=== PATIENT | female | born 1960 | race Caucasian/White ===

== ENCOUNTER 2017-07-15 14:28 | Inpatient (IN) | payer OTHER ==
--- NOTE | 2017-07-15 15:03 | EDPHY ---
H & P Stated Complaint: abdominal pain with extreme nausea. HX- small bowel obst Time Seen by Provider: 07/15/17 15:00 - Personal History Current Tetanus Diphtheria and Acellular Pertussis (TDAP): Yes - Medical/Surgical History Hx Asthma: No Hx Chronic Respiratory Disease: No Hx Diabetes: No Hx Cardiac Disease: No Hx Renal Disease: No Hx Cirrhosis: No Hx Alcoholism: No Hx HIV/AIDS: No Hx Splenectomy or Spleen Trauma: No Other PMH: ovarian CA, bowel obstruction, appy, kyphoplasty, hand surgery, tonsilectomy - Social History Smoking Status: Never smoked Constitutional: Initial Vital Signs Temperature (C) 36.6 C 07/15/17 14:36 Heart Rate 73 07/15/17 14:36 Respiratory Rate 19 07/15/17 14:36 Blood Pressure 129/115 H 07/15/17 14:36 O2 Sat (%) 99 07/15/17 14:36 O2 Delivery Mode Room Air Allergies/Adverse Reactions: codeine Allergy (Verified 03/04/15 09:21) Home Medications: Medication Instructions Recorded Ciprofloxacin [Cipro] 500 mg PO BID #20 tab 07/15/17 Gabapentin 07/15/17 Losartan Potassium 07/15/17 Ondansetron Odt [Zofran Odt 4 mg 4 mg PO Q4 PRN #10 tab 07/15/17 (RX)] metroNIDAZOLE [Flagyl 500 mg (*)] 500 mg PO TID #30 tab 07/15/17 Medical Decision Making - Diagnostics Imaging Results: Imaging Impressions Abdomen CT 07/15/17 15:35 Impression: 1. Mildly dilated loops of mid to distal small bowel to the level of the mid ileum which demonstrates mild to moderate thickening and possible underlying inflammatory or infectious process. 2. Mild distention of the ascending colon without obstruction. 3. Stable presacral soft tissue thickening. Findings discussed with Elda Berry PA-C answering for Manuel Mcqueen MD at 16:48 hour, 07/15/2017. Imaging: Discussed imaging studies w/ call manager Radiologist, I viewed and interpreted images myself ED Course/Re-evaluation: CHIEF COMPLAINT: Abdominal pain HISTORY OF PRESENT ILLNESS: The patient is a 56 y/o female with a history of ovarian cancer post radiation, debulking, and partial colectomy and prior small bowel obstructions complaining of intermittent LLQ abdominal pain onset this morning. She describes her pain as cramping in quality, non-radiating, and associated with nausea and vomiting. She has felt constipated for the last few days and has had no bowel movement today. Her pain feels similar to her prior obstructions, which have both required hospital admissions but no surgeries. She denies diarrhea, hematemesis, fever, chills. REVIEW OF SYSTEMS: A 10 point review of systems was performed and is negative with the exception of the elements mentioned in the history of present illness. PHYSICAL EXAM: HR, BP, O2 Sat, RR. Temp noted General Appearance: Alert, well hydrated, appropriate, and uncomfortable- appearing, actively vomiting/belching. Head: Atraumatic without scalp tenderness or obvious injury Eyes: Pupils equal, round, reactive to light and accommodation, EOMI, no trauma , no injection. Nose: Atraumatic, no rhinorrhea, clear. Throat: Mucus membranes moist. Neck: Supple Respiratory: No retractions, no distress, no wheezes, and no accessory muscle use. Lungs are clear to auscultation bilaterally. Cardiovascular: Regular rate and rhythm, no murmurs, rubs, or gallops. Good capillary refill all extremities. Gastrointestinal: Abdomen is soft, LLQ tenderness and guarding, non-distended, no masses, no rebound, no peritoneal signs. Musculoskeletal: Normal active ROM of all extremities, atraumatic. Neurological: Alert, appropriate, and interactive. The patient has non-focal cranial nerves, motor, sensory, and cerebellar exam. Skin: No rashes, good turgor, no nodules on palpation. Past medical history: Ovarian cancer post entire abdomen radiation and surgery, Small bowel obstructions x2 not requiring surgery Past surgical history: Appendectomy - [place], debulking and colectomy related to ovarian cancer, tonsillectomy, kyphoplasty, hand surgery Family history: Noncontributory Social history: Nonsmoker, occasional alcohol use DIAGNOSTICS/PROCEDURES/CRITICAL CARE TIME: Abdominal CT: No definitive obstruction. Thickened loops of bowel in the ileum could represent inflammation or infection. Mildly distended colon. DIFFERENTIAL DIAGNOSIS: The differential diagnosis for the patient's abdominal pain included but was not limited to ovarian cyst, pelvic inflammatory disease, ovarian torsion, urinary tract infection, ectopic , cholecystitis, and appendicitis. MEDICAL DECISION MAKING: This is a 56 y/o female with a history of ovarian cancer post multiple surgeries and whole-abdomen radiation as well as prior small bowel obstructions who presents with several hours of intermittent cramping LLQ abdominal pain with nausea and vomiting. She has LLQ tenderness with guarding on exam. Symptoms feel similar to her prior SBO and her presentation today particularly given significant risk factors is concerning for the same. Plan for IV, labs, abdominal CT, and symptom management. 1L IV NS and 4mg IV Zofran ordered. Reassessed patient and discussed findings. WBC mildly elevated. She is feeling significantly improved. CT does not show a definitive obstruction, though it's impossible to determine if process causing her symptoms are resolving or will worsen again. Will treat with course of Cipro and Flagyl for suspected colitis. Discussed the risks and benefits of admission for continued observation and symptom management vs. discharge home and she has opted to go home with a script for Zofran for symptoms. Strict return precautions discussed. 1810: Patient is now vomiting again and has decided she would like to be admitted. Will administered first doses of Cipro and Flagyl here. Spoke with hospitalist service. Dr. Corrigan accepts admission. - Data Points Laboratory Results: Laboratory Results 07/15/17 15:07 07/15/17 15:07 07/15/17 07/15/17 07/15/17 16:30 15:45 15:07 WBC RBC Hgb POC Hgb 12.6 gm/dL gm/dL (12.6-16.3) Hct POC Hct 37 % L % (38-47) MCV MCH MCHC RDW Plt Count MPV Neut % (Auto) Lymph % (Auto) [place] % (Auto) Eos % (Auto) Baso % (Auto) Nucleat RBC Rel Count Absolute Neuts (auto) Absolute Lymphs (auto) Absolute Monos (auto) Absolute Eos (auto) Absolute Basos (auto) Absolute Nucleated RBC Immature Gran % Immature Gran # PT INR APTT VBG Lactic Acid 0.9 mmol/L mmol/L (0.7-2.1) POC Sodium 142 mEq/L mEq/L (135-145) Sodium 144 mEq/L mEq/L (135-145) POC Potassium 3.5 mEq/L mEq/L (3.3-5.0) Potassium 3.8 mEq/L mEq/L (3.5-5.2) POC Chloride 104 mEq/L mEq/L (97-110) Chloride 104 mEq/L mEq/L (97-110) Carbon Dioxide 27 mEq/l mEq/l (22-31) Anion Gap 13 mEq/L mEq/L (8-16) POC BUN 12 mg/dL mg/dL (7-23) BUN 13 mg/dL mg/dL (7-23) Creatinine 0.7 mg/dL mg/dL (0.6-1.0) POC Creatinine 0.7 mg/dL mg/dL (0.6-1.0) Estimated GFR > 60 Glucose 149 mg/dL H mg/dL (70-100) POC Glucose 141 mg/dL H mg/dL (70-100) Calcium 10.0 mg/dL mg/dL (8.5-10.4) Total Bilirubin 1.8 mg/dL H mg/dL (0.1-1.4) Conjugated Bilirubin 0.4 mg/dL mg/dL (0.0-0.5) Unconjugated Bilirubin 1.4 mg/dL H mg/dL (0.0-1.1) AST 35 IU/L IU/L (14-46) ALT 41 IU/L IU/L (9-52) Alkaline Phosphatase 87 IU/L IU/L (38-126) Total Protein 7.8 g/dL g/dL (6.3-8.2) Albumin 4.6 g/dL g/dL (3.5-5.0) Lipase 07/15/17 07/15/17 07/15/17 15:07 15:07 15:07 WBC 10.13 10^3/uL H 10^3/uL (3.80-9.50) RBC 4.76 10^6/uL 10^6/uL (4.18-5.33) Hgb 13.3 g/dL g/dL (12.6-16.3) POC Hgb Hct 40.2 % % (38.0-47.0) POC Hct MCV 84.5 fL fL (81.5-99.8) MCH 27.9 pg pg (27.9-34.1) MCHC 33.1 g/dL g/dL (32.4-36.7) RDW 13.8 % % (11.5-15.2) Plt Count 354 10^3/uL 10^3/uL (150-400) MPV 9.0 fL fL (8.7-11.7) Neut % (Auto) 85.3 % H % (39.3-74.2) Lymph % (Auto) 9.5 % L % (15.0-45.0) [place] % (Auto) 4.0 % L % (4.5-13.0) Eos % (Auto) 0.5 % L % (0.6-7.6) Baso % (Auto) 0.3 % % (0.3-1.7) Nucleat RBC Rel Count 0.0 % % (0.0-0.2) Absolute Neuts (auto) 8.64 10^3/uL H 10^3/uL (1.70-6.50) Absolute Lymphs (auto) 0.96 10^3/uL L 10^3/uL (1.00-3.00) Absolute Monos (auto) 0.41 10^3/uL 10^3/uL (0.30-0.80) Absolute Eos (auto) 0.05 10^3/uL 10^3/uL (0.03-0.40) Absolute Basos (auto) 0.03 10^3/uL 10^3/uL (0.02-0.10) Absolute Nucleated RBC 0.00 10^3/uL 10^3/uL (0-0.01) Immature Gran % 0.4 % % (0.0-1.1) Immature Gran # 0.04 10^3/uL 10^3/uL (0.00-0.10) PT 13.0 SEC SEC (12.0-15.0) INR 0.96 (0.83-1.16) APTT 26.1 SEC SEC (23.0-38.0) VBG Lactic Acid POC Sodium Sodium 144 mEq/L mEq/L (135-145) POC Potassium Potassium 3.8 mEq/L mEq/L (3.5-5.2) POC Chloride Chloride 103 mEq/L mEq/L (97-110) Carbon Dioxide 26 mEq/l mEq/l (22-31) Anion Gap 15 mEq/L mEq/L (8-16) POC BUN BUN 13 mg/dL mg/dL (7-23) Creatinine 0.7 mg/dL mg/dL (0.6-1.0) POC Creatinine Estimated GFR > 60 Glucose 149 mg/dL H mg/dL (70-100) POC Glucose Calcium 10.0 mg/dL mg/dL (8.5-10.4) Total Bilirubin 1.8 mg/dL H mg/dL (0.1-1.4) Conjugated Bilirubin Unconjugated Bilirubin AST 32 IU/L IU/L (14-46) ALT 37 IU/L IU/L (9-52) Alkaline Phosphatase 89 IU/L IU/L (38-126) Total Protein 7.8 g/dL g/dL (6.3-8.2) Albumin 4.6 g/dL g/dL (3.5-5.0) Lipase 79 IU/L IU/L (23-300) Medications Given: Discontinued Medications Sodium Chloride (Ns) 1,000 mls @ 0 mls/hr IV EDNOW ONE; Wide Open PRN Reason: Protocol Stop: 07/15/17 15:36 Last Admin: 07/15/17 16:04 Dose: 1,000 mls Ondansetron HCl (Zofran) 4 mg IVP EDNOW ONE Stop: 07/15/17 15:14 Last Admin: 07/15/17 15:18 Dose: 4 mg Point of Care Test Results: 07/15/17 15:45 POC Sodium 142 POC Potassium 3.5 POC Chloride 104 POC BUN 12 POC Creatinine 0.7 POC Glucose 141 H Departure - Departure Disposition: [facility] Inpatient Acute Clinical Impression: Colitis Abdominal pain Qualifiers: Abdominal location: left lower quadrant Qualified Code(s): R10.32 - Left lower quadrant pain Condition: Fair Report Scribed for: Manuel Mcqueen Report Scribed by: Marika De Luna Date of Report: 07/15/17 Time of Report: 15:30
[2017-07-15] MEDS ORDERED: ONDANSETRON 4 MG/2 ML VIAL IVP ONE ×2 (15:13→18:22)
[2017-07-15 15:35] LABS: PLATELET COUNT 354 10^3/uL (150-400)
[2017-07-15] MEDS ORDERED: NS 1,000 ML IV ONE ×2 (15:35→18:42)
[2017-07-15] MEDS ORDERED: IOPAMIDOL (ISOVUE-300) 100 ML BTL ONE (15:48)
[2017-07-15 15:49] LABS: INR 0.96 (0.83-1.16)
[2017-07-15] MEDS ORDERED: ONDANSETRON 4 MG/2 ML VIAL ONE ×2 (16:30→18:23)
[2017-07-15] MEDS ORDERED: ONDANSETRON 4MG PREPACK#2 BTL TAKEHOME ONE (18:00)
[2017-07-15] MEDS ORDERED: CIPROFLOXACIN 500MG PREPACK#2 BTL TAKEHOME ONE (18:00)
[2017-07-15] MEDS ORDERED: metroNIDAZOLE 500 MG TAB ONE (18:01)
[2017-07-15] MEDS ORDERED: CIPROFLOXACIN 400 MG/DEXTROSE 200 ML IV ONE (18:20)
[2017-07-15] MEDS ORDERED: HYDROmorphONE/DILAUDID 1 MG/ML INJ IVP ONE (18:21)
[2017-07-15] MEDS ORDERED: PROMETHAZINE HCL 25 MG/ML INJ IVP ONE (18:22)
[2017-07-15] MEDS ORDERED: PROMETHAZINE HCL 25 MG/ML INJ ONE (18:24)
[2017-07-15] MEDS ORDERED: HYDROmorphONE/DILAUDID 2 MG/ML INJ ONE (18:36)
--- NOTE | 2017-07-15 19:36 | PDGENHP ---
History and Physical - Chief Complaint abdominal cramping, vomiting - History of Present Illness 56 yo female with h/o ovarian cancer and recurrent partial SBO's presents with abdominal pain, cramping and vomiting. She has had multiple abdominal surgeries and radiation for ovarian cancer in 2004. This morning she awoke with nausea and crampy abdominal discomfort. She had armenian food and a lot of vegetables last night. She has vomited 5 times today, no hematemesis or coffee ground emesis. No fevers/chils. States she has chronic diarrhea. Last BM was this am and it was normal for her. In the ED, CT scan shows dilated loops of bowel and small bowel wall thickening. This feels similar to her prior obstructions, which have always resolved with conservative management. In the ED, she received 1 mg IV Dilaudid , anti-emetics, and NS and is admitted to the hospital for further management. History Information - Allergies/Home Medication List Allergies/Adverse Reactions: codeine Allergy (Verified 03/04/15 09:21) Home Medications: Alendronate Sodium [Fosamax 70 MG (*)] 70 mg PO FR 07/15/17 [Last Taken 07/14/17 ] HYDROmorphone HCL [Dilaudid 2 mg (*)] 2 mg PO DAILY PRN 07/15/17 [Last Taken Unknown] Losartan/Hctz 50/12.5 [Hyzaar 50/12.5MG (*)] 1 tab PO DAILY 07/15/17 [Last Taken 07/14/17] I have personally reviewed and updated: family history, medical history, social history, surgical history - Past Medical History hypertension Additional medical history: ovarian cancer diagnosed 2004, surgical resection and chemo and radiation- in remission. osteoarthritis. peripheral neuropathy - Surgical History Reports: appendectomy, cholecystectomy, hysterectomy Additional surgical history: exploratory laparoscopic surgery. oopherectomy/ salpingectomy. FRANKI. bowel resection, tumor debulking surgery. tonsillectomy - Family History Positive for: cancer, diabetes type II - Social History Smoking Status: Never smoked Alcohol Use: Other (1-2 glasses of wine every few days) Drug Use: None Additional social history: Lives with her sister. She works as an senior design engineer for [employer] Review of Systems Review of Systems: ROS: 10pt was reviewed & negative except for what was stated in HPI & below Physical Exam Physical Exam: Temp Pulse Resp BP Pulse Ox 36.5 C 76 18 119/77 96 07/15/17 18:33 07/15/17 19:04 07/15/17 19:04 07/15/17 19:04 07/15/17 19:04 O2 (L/minute) 2 Constitutional: no apparent distress Eyes: PERRL Ears, Nose, Mouth, Throat: moist mucous membranes Cardiovascular: regular rate and rhythym Respiratory: no respiratory distress, clear to auscultation Gastrointestinal: normoactive bowel sounds, other (soft, nd, +left sided TTP with voluntary guarding, no rigidity) Skin: warm Musculoskeletal: full muscle strength Neurologic: AAOx3 Psychiatric: interacting appropriately Lab Data & Imaging Review 07/15/17 15:07 07/15/17 15:07 WBC 10.13 10^3/uL (3.80-9.50) H 07/15/17 15:07 RBC 4.76 10^6/uL (4.18-5.33) 07/15/17 15:07 Hgb 13.3 g/dL (12.6-16.3) 07/15/17 15:07 POC Hgb 12.6 gm/dL (12.6-16.3) 07/15/17 15:45 Hct 40.2 % (38.0-47.0) 07/15/17 15:07 POC Hct 37 % (38-47) L 07/15/17 15:45 MCV 84.5 fL (81.5-99.8) 07/15/17 15:07 MCH 27.9 pg (27.9-34.1) 07/15/17 15:07 MCHC 33.1 g/dL (32.4-36.7) 07/15/17 15:07 RDW 13.8 % (11.5-15.2) 07/15/17 15:07 Plt Count 354 10^3/uL (150-400) 07/15/17 15:07 MPV 9.0 fL (8.7-11.7) 07/15/17 15:07 Neut % (Auto) 85.3 % (39.3-74.2) H 07/15/17 15:07 Lymph % (Auto) 9.5 % (15.0-45.0) L 07/15/17 15:07 [place] % (Auto) 4.0 % (4.5-13.0) L 07/15/17 15:07 Eos % (Auto) 0.5 % (0.6-7.6) L 07/15/17 15:07 Baso % (Auto) 0.3 % (0.3-1.7) 07/15/17 15:07 Nucleat RBC Rel Count 0.0 % (0.0-0.2) 07/15/17 15:07 Absolute Neuts (auto) 8.64 10^3/uL (1.70-6.50) H 07/15/17 15:07 Absolute Lymphs (auto) 0.96 10^3/uL (1.00-3.00) L 07/15/17 15:07 Absolute Monos (auto) 0.41 10^3/uL (0.30-0.80) 07/15/17 15:07 Absolute Eos (auto) 0.05 10^3/uL (0.03-0.40) 07/15/17 15:07 Absolute Basos (auto) 0.03 10^3/uL (0.02-0.10) 07/15/17 15:07 Absolute Nucleated RBC 0.00 10^3/uL (0-0.01) 07/15/17 15:07 Immature Gran % 0.4 % (0.0-1.1) 07/15/17 15:07 Immature Gran # 0.04 10^3/uL (0.00-0.10) 07/15/17 15:07 PT 13.0 SEC (12.0-15.0) 07/15/17 15:07 INR 0.96 (0.83-1.16) 07/15/17 15:07 APTT 26.1 SEC (23.0-38.0) 07/15/17 15:07 VBG Lactic Acid 0.9 mmol/L (0.7-2.1) 07/15/17 16:30 POC Sodium 142 mEq/L (135-145) 07/15/17 15:45 Sodium 144 mEq/L (135-145) 07/15/17 15:07 POC Potassium 3.5 mEq/L (3.3-5.0) 07/15/17 15:45 Potassium 3.8 mEq/L (3.5-5.2) 07/15/17 15:07 POC Chloride 104 mEq/L (97-110) 07/15/17 15:45 Chloride 104 mEq/L (97-110) 07/15/17 15:07 Carbon Dioxide 27 mEq/l (22-31) 07/15/17 15:07 Anion Gap 13 mEq/L (8-16) 07/15/17 15:07 POC BUN 12 mg/dL (7-23) 07/15/17 15:45 BUN 13 mg/dL (7-23) 07/15/17 15:07 Creatinine 0.7 mg/dL (0.6-1.0) 07/15/17 15:07 POC Creatinine 0.7 mg/dL (0.6-1.0) 07/15/17 15:45 Estimated GFR > 60 07/15/17 15:07 Glucose 149 mg/dL (70-100) H 07/15/17 15:07 POC Glucose 141 mg/dL (70-100) H 07/15/17 15:45 Calcium 10.0 mg/dL (8.5-10.4) 07/15/17 15:07 Total Bilirubin 1.8 mg/dL (0.1-1.4) H 07/15/17 15:07 Conjugated Bilirubin 0.4 mg/dL (0.0-0.5) 07/15/17 15:07 Unconjugated Bilirubin 1.4 mg/dL (0.0-1.1) H 07/15/17 15:07 AST 35 IU/L (14-46) 07/15/17 15:07 ALT 41 IU/L (9-52) 07/15/17 15:07 Alkaline Phosphatase 87 IU/L (38-126) 07/15/17 15:07 Total Protein 7.8 g/dL (6.3-8.2) 07/15/17 15:07 Albumin 4.6 g/dL (3.5-5.0) 07/15/17 15:07 Lipase 79 IU/L (23-300) 07/15/17 15:07 Assessment & Plan Assessment: Abdominal pain - Suspect partial SBO given h/o multiple abdominal surgeries, recurrent SBO's and dilated loops of bowel on CT, which is personally reviewed and interpreted. No transition point. Inflammation is noted and infectious etiology is possible. WBC's minimally elevated. Afebrile. Low suspicion for a bacterial process and will thus defer further atbx (received Cipro and Flagyl in ED). -supportive care to include NPO for bowel rest, IVF's, pain control -anticipate she will improve with conservative measures, will consult surgery if worsening -will place NG tube if vomiting persists -send GI pathogen panel H/O ovarian cancer - in remission for 10 yrs. Chronic LLE edema - related to lymph node dissection of LLE. Full code DVT PPLX - Lovenox Dispo - obs
[2017-07-15] MEDS ORDERED: ACETAMINOPHEN 650 MG SUPP PR PRN (19:48)
[2017-07-15] MEDS ORDERED: ONDANSETRON DISINTEGRATING 4 MG TAB PO PRN (19:48)
[2017-07-15] MEDS ORDERED: NS W/ 20 KCl/L 1,000 ML IV SCH (20:00)
[2017-07-15] MEDS ORDERED: PROMETHAZINE HCL 25 MG/ML INJ IVP PRN (20:02)
[2017-07-15] MEDS: ONDANSETRON 4 MG/2 ML VIAL IVP PRN (21:04)
[2017-07-15] MEDS: HYDROmorphone HCL/NS 0.5 MG/ML SYR IVP PRN (22:51)
[2017-07-16 04:56] LABS: PLATELET COUNT 258 10^3/uL (150-400)
[2017-07-16] MEDS: ONDANSETRON 4 MG/2 ML VIAL IVP PRN ×3 (09:12→20:29)
[2017-07-16] MEDS: ENOXAPARIN 40 MG/0.4 ML SYR SC SCH (09:12)
--- NOTE | 2017-07-16 09:48 | ASMTCMCOM ---
CM Note CM Note Notes: Chart reviewed for dc planning. 56 year olf female admitted via ED as OBS for nausea and vomiting. History significant for SBO and ovarian cancer. Lives Independently, likely no needs at dc. CM available should needs arise. Plan: Likely home independently Date Signed: 07/16/2017 09:48 AM Electronically Signed By:Amita Westfall RN
--- NOTE | 2017-07-16 15:27 | HOSPPROG ---
Hospitalist Progress Note Assessment/Plan: 56 yo F with PMH of ovarian cancer and recurrent SBO admitted with persistent n/ v/abdominal pain similar to prior bouts of SBO # Abdominal pain - Suspect partial SBO given h/o multiple abdominal surgeries, recurrent SBO's and dilated loops of bowel on CT, which is personally reviewed and interpreted. Less likely this is an infectious process and holding off on abx for now. # partial SBO with persistent n/v: in setting of presumed partial SBO as above, NG in place and has put out 500mL overnight. She still has some nausea present. If nausea improved tomorrow will try clamping tube. Will repeat abd xray in am # H/O ovarian cancer - in remission for 10 yrs. # Chronic LLE edema - related to lymph node dissection of LLE. Stable #Full code #DVT PPLX - Lovenox IP status, remains high risk with NGT in place and requiring IV narcotics, will require > 48 hours care Patient new to my care. Old records reviewed and summarized as above. Subjective: no significant overnight events, n/v continued and required placement of NGT Objective: Vital Signs Temp Pulse Resp BP Pulse Ox 36.8 C 72 16 122/79 H 92 07/16/17 11:17 07/16/17 11:17 07/16/17 11:17 07/16/17 11:17 07/16/17 11:17 Microbiology 07/16/17 11:10 Gastrointestinal Tract Panel (PCR) - Final Stool No Organism Detected Laboratory Results 07/16/17 04:30 07/16/17 04:30 07/15/17 07/16/17 07/17/17 05:59 05:59 05:59 Intake Total 3040 Output Total 1100 Balance 1940 PT 13.0 SEC (12.0-15.0) 07/15/17 15:07 INR 0.96 (0.83-1.16) 07/15/17 15:07 awake alert anicteric ng in place with yellow-green output rrr no mrg cta b soft nt nd no cce warm dry well perfused oriented appropriate ICD10 Worksheet Patient Problems: Problems Problem Status Onset Abdominal pain Acute Colitis Acute
--- NOTE | 2017-07-16 16:01 | PDMN ---
Medical Necessity Medical necessity: C/M review: Patient meets INPT criteria under MCG M-210 Intestinal obstruction: Acute and persistent abdominal pain, nausea, vomiting, presumed small bowel obstruction, dilated loops of bowel on CT requiring 2017 NG tube placement, patient hi risk, ongoing NPO, IV NS with 20 meq KCl 100 ml/hr. infusion, IV Dilaudid, IV Zofran, NU tube to suction management, comorbid history of multiple abdominal surgeries, recurrent small bowel obstructions, ovarian cancer, chronic left lower extremity edema. MD anticipates > 2 MN LOS for ongoing med nec for eval and TX of above.
[2017-07-16] MEDS: NS 1,000 ML IV SCH (20:29)
[2017-07-17] MEDS: NS 1,000 ML IV SCH ×3 (03:27→23:15)
[2017-07-17] MEDS: ENOXAPARIN 40 MG/0.4 ML SYR SC SCH (08:57)
[2017-07-17] MEDS: hydrALAZINE 10 MG TAB PO PRN (18:35)
--- NOTE | 2017-07-17 18:38 | HOSPPROG ---
Hospitalist Progress Note Assessment/Plan: 56 yo F with PMH of ovarian cancer and recurrent SBO admitted with persistent n/ v/abdominal pain similar to prior bouts of SBO # partial SBO with persistent n/v: NG in place with continued output and nausea with clamping, pain has improved. 2/2 prior surgical interventions with multiple surgeries for ovarian cancer. Will get plain film in am and continue to attempt periods of taking off suction. If no improvement tomorrow will get surgery consult. # H/O ovarian cancer - in remission for 10 yrs. # Chronic LLE edema - related to lymph node dissection of LLE. Stable #Full code #DVT PPLX - Lovenox IP status, remains high risk with NGT in place and requiring IV narcotics, will require > 48 hours care Subjective: no significant overnight events, NG put out 300ml, mildly nauseous when suction off still Objective: Vital Signs Temp Pulse Resp BP Pulse Ox 36.9 C 82 16 153/93 H 97 07/17/17 16:00 07/17/17 16:00 07/17/17 16:00 07/17/17 16:00 07/17/17 16:00 Microbiology 07/16/17 11:10 Gastrointestinal Tract Panel (PCR) - Final Stool No Organism Detected Laboratory Results 07/16/17 04:30 07/16/17 04:30 07/16/17 07/17/17 07/18/17 05:59 05:59 05:59 Intake Total 3040 2238 1125 Output Total 1100 2000 950 Balance 1940 238 175 PT 13.0 SEC (12.0-15.0) 07/15/17 15:07 INR 0.96 (0.83-1.16) 07/15/17 15:07 awake alert anicteric ng in place with yellow-green output rrr no mrg cta b soft nt nd no bs appreciated no cce warm dry well perfused oriented appropriate ICD10 Worksheet Patient Problems: Problems Problem Status Onset Abdominal pain Acute Colitis Acute
[2017-07-17] MEDS: ONDANSETRON 4 MG/2 ML VIAL IVP PRN (23:20)
[2017-07-18] MEDS: hydrALAZINE 10 MG TAB PO PRN (01:47)
[2017-07-18] MEDS: HYDROmorphone HCL/NS 0.5 MG/ML SYR IVP PRN ×2 (01:48→18:47)
[2017-07-18] MEDS: ENOXAPARIN 40 MG/0.4 ML SYR SC SCH (08:17)
[2017-07-18] MEDS: NS 1,000 ML IV SCH ×2 (09:17→17:56)
--- NOTE | 2017-07-18 12:49 | SOAPPROG ---
SOAP Progress Note Assessment/Plan: Assessment/Plan: 56yo F with history of ovarian cancer, admitted with SBO Full consult note to follow Persistent symptoms, uanble to clamp NG for >30 minutes without severe nausea Will try Gastrograffin challenge - 100mL mixed with 50mL water via NG tube/ Clamp 8 hours, then abd XR. If contrast in colon or BM, then remove NG. If no contrast in colon or nausea, return to suction and will likely require surgical intervention. Plan: 07/18/17 12:47 07/18/17 13:08 Objective: Vital Signs Temp Pulse Resp BP Pulse Ox 36.9 C 87 16 166/92 H 89 L 07/18/17 11:43 07/18/17 11:43 07/18/17 11:43 07/18/17 11:43 07/18/17 11:43 Laboratory Results 07/16/17 04:30 07/16/17 04:30 07/17/17 07/18/17 07/19/17 05:59 05:59 05:59 Intake Total 2238 2313 Output Total 1999 5542 500 Balance 238 -837 -500 PT 13.0 SEC (12.0-15.0) 07/15/17 15:07 INR 0.96 (0.83-1.16) 07/15/17 15:07 ICD10 Worksheet Patient Problems: Problems Problem Status Onset Abdominal pain Acute Colitis Acute
--- NOTE | 2017-07-18 12:59 | HOSPPROG ---
Hospitalist Progress Note Assessment/Plan: 56 yo F with PMH of ovarian cancer and recurrent SBO admitted with persistent n/ v/abdominal pain similar to prior bouts of SBO # partial SBO with persistent n/v: NG in place with continued output and nausea with clamping, pain has improved. 2/2 prior surgical interventions with multiple surgeries for ovarian cancer. Continues to fail to improve with very minimal to no bowel sounds, consulted general surgery, appreciate their help. NGT output increased overnight with 1650ml out. # H/O ovarian cancer - in remission for 10 yrs. Multiple surgical interventions as above. # Chronic LLE edema - related to lymph node dissection of LLE. Stable #Full code #DVT PPLX - Lovenox IP status, remains high risk with NGT in place and requiring IV narcotics, will require > 48 hours care. Care plan discussed with Dr. Robert. Subjective: no significant overnight events, patient notes that she continues to have nausea when her ngt is not on suction, no gas passing Objective: Vital Signs Temp Pulse Resp BP Pulse Ox 36.9 C 87 16 166/92 H 89 L 07/18/17 11:43 07/18/17 11:43 07/18/17 11:43 07/18/17 11:43 07/18/17 11:43 Laboratory Results 07/16/17 04:30 07/16/17 04:30 07/17/17 07/18/17 07/19/17 05:59 05:59 05:59 Intake Total 2238 2313 Output Total 1999 3150 500 Balance 238 -837 -500 PT 13.0 SEC (12.0-15.0) 07/15/17 15:07 INR 0.96 (0.83-1.16) 07/15/17 15:07 awake alert anicteric ng in place with yellow-green output rrr no mrg cta b soft nt nd no bs appreciated no cce warm dry well perfused oriented appropriate ICD10 Worksheet Patient Problems: Problems Problem Status Onset Abdominal pain Acute Colitis Acute
--- NOTE | 2017-07-18 14:56 | GCON ---
[f rep st] CONSULTATION DATE OF CONSULTATION: 07/18/2017 CHIEF COMPLAINT: Persistent small bowel obstruction, nausea and vomiting. HISTORY OF PRESENT ILLNESS: The patient is a 56-year-old woman who was admitted for a small-bowel obstruction. She was originally diagnosed with ovarian cancer in 1998. She then developed a second primary, which was diagnosed in 2001. She had her first recurrence in 2004. She developed a bowel obstruction several years later. Her MEDICAL BILLING CODER ONC is Dr. Claudia Montgomery in [place]. She required surgery for her previous small-bowel obstruction, at which time she reports that Dr. Montgomery took her appendix, and also performed extensive lysis of adhesions, specifically in the left lower quadrant. She has had no issues since that time. She is typically very strict with her diet, avoiding excessive fiber, however, over the past week, she "let loose." She reports eating a full salad, a full apple, Syriac food, including a lot of vegetables, as well as other high fiber foods. On Monday, she drank a sip of coffee and began vomiting. Since that time, she has had severe vomiting and nausea. No fevers or chills. She has a stabbing pain in her left lower quadrant. She denies much distention. She presented to the emergency room, a CAT scan was performed, which showed dilated loops of bowel, with small bowel wall thickening. She was admitted and an NG tube was placed. Her symptoms have improved since the NG tube was put in, however, attempts to clamp the tube have reproduced her nausea. She is unable to keep the tube clamped for more than 30 minutes without the nausea returning and becoming severe. She is eating ice chips for comfort. PAST MEDICAL HISTORY: Hypertension, ovarian cancer, osteoarthritis, peripheral neuropathy. PAST SURGICAL HISTORY: Appendectomy, cholecystectomy, FRANKI with BSO, tumor debulking surgery, exploratory laparotomy with lysis of adhesions, tonsillectomy. FAMILY HISTORY: Significant for cancer, type 2 diabetes. SOCIAL HISTORY: She denies tobacco or recreational drug use. She reports occasional alcohol use. REVIEW OF SYSTEMS: A 10-point review of system is negative, aside from HPI. PHYSICAL EXAMINATION: GENERAL: Well-developed, well-nourished woman, in no acute distress. HEENT: Normocephalic, atraumatic. No hearing deficits. Pupils equal and round. No scleral icterus. Mucous membranes moist. NG tube with bilious, brownish thin fluid in canister. RESPIRATORY: No increased work of breathing. CARDIOVASCULAR: No peripheral edema. ABDOMEN: Absent bowel sounds. Abdomen is not very distended, soft, tenderness to palpation left lower abdomen without rebound or guarding. Previous surgical incisions well healed. No evidence of incisional hernias. SKIN: Warm and dry. PSYCH: Mood and affect normal. NEURO: Grossly intact. IMPRESSION AND PLAN: A 56-year-old woman with a persistent small bowel obstruction. We have ordered a Gastrografin challenge test to be performed. She will receive 100 cc of Gastrografin and mixed with 50 cc of water via her NG tube. We will keep the NG tube clamped for as long as possible. She will have an abdominal x-ray performed 4 hours after administration. The administration of Gastrografin can also be therapeutic. If the Gastrografin does not pass into her colon, then she may require surgical intervention. If she develops significant nausea with the NG tube clamp, this can be returned back to suction. We will re-evaluate after the abdominal x-ray is performed. Continue n.p.o., bowel rest and IV fluid. Thank you to the hospitalist for primary management. We will continue to follow her through her hospital stay. I personally saw and examined this patient and terry solo pa-c acted as scribe /[id number]/MODL MTDD
[2017-07-18] MEDS ORDERED: hydrALAZINE 20 MG/ML VIAL IVP PRN (14:57)
[2017-07-18] MEDS: ONDANSETRON 4 MG/2 ML VIAL IVP PRN ×2 (15:04→21:45)
--- NOTE | 2017-07-18 21:35 | SOAPPROG ---
SOAP Progress Note Assessment/Plan: Assessment: gastrograffin throughout colon - no dilated loops of bowel. Will continue to observe Plan: 07/18/17 21:34 Objective: Vital Signs Temp Pulse Resp BP Pulse Ox 36.9 C 90 18 144/82 H 99 07/18/17 19:24 07/18/17 19:24 07/18/17 19:24 07/18/17 19:24 07/18/17 19:24 Laboratory Results 07/16/17 04:30 07/16/17 04:30 07/17/17 07/18/17 07/19/17 05:59 05:59 05:59 Intake Total 2238 2313 1220 Output Total 1999 3150 1100 Balance 238 -837 120 PT 13.0 SEC (12.0-15.0) 07/15/17 15:07 INR 0.96 (0.83-1.16) 07/15/17 15:07 ICD10 Worksheet Patient Problems: Problems Problem Status Onset Abdominal pain Acute Colitis Acute
[2017-07-19] MEDS: ENOXAPARIN 40 MG/0.4 ML SYR SC SCH (09:12)
--- NOTE | 2017-07-19 09:23 | SOAPPROG ---
SOAP Progress Note Assessment/Plan: Assessment/Plan: 56yo F with history of ovarian cancer, admitted with SBO Contrast in colon on XR last night Having liquid bowel movements and passing flatus NG tube clamped all night without nausea NG removed without difficulty Clear liquids - limit 8oz q8h S: feeling much better today, passing gas and stool O: laying in bed, comfortable, NAD No increased WOB +BS, abd soft,nondistended, nontender. NG removed without difficulty Objective: Vital Signs Temp Pulse Resp BP Pulse Ox 36.9 C 79 16 138/91 H 92 07/19/17 07:30 07/19/17 07:30 07/19/17 07:30 07/19/17 07:30 07/19/17 07:30 Laboratory Results 07/16/17 04:30 07/16/17 04:30 07/18/17 07/19/17 07/20/17 05:59 05:59 05:59 Intake Total 2313 1220 Output Total 3150 1900 100 Balance -837 -680 -100 PT 13.0 SEC (12.0-15.0) 07/15/17 15:07 INR 0.96 (0.83-1.16) 07/15/17 15:07 ICD10 Worksheet Patient Problems: Problems Problem Status Onset Abdominal pain Acute Colitis Acute
--- NOTE | 2017-07-19 09:47 | ASMTCMCOM ---
CM Note CM Note Notes: CM spoke w/ Roman RN regarding d/c POC. Pt has a NG clamped. Pt is still NPO. Pt will most likely d/c independent when medically stable. No therapies ordered at this time. CM available for changes. Plan: Independent Date Signed: 07/19/2017 09:46 AM Electronically Signed By:FELIPE Kaur
--- NOTE | 2017-07-19 10:55 | HOSPPROG ---
Hospitalist Progress Note Assessment/Plan: New patient encounter 56 yo F with PMH of ovarian cancer and recurrent SBO admitted with persistent n/ v/abdominal pain similar to prior bouts of SBO # partial SBO -improving, passing gas, having loose stools -KUB with gastrograffin with no signs of obstruction -NGT pulled, no on clears -appreciate Surgery's assistance -pain is well controlled. # H/O ovarian cancer - in remission for 10 yrs. Multiple surgical interventions as above. # Chronic LLE edema - related to lymph node dissection of LLE. Stable #Full code #DVT PPLX - Lovenox IP status, remains high risk Monitor on clears overnight, if stable, consider d/c tomorrow d/w nurse at bedside Objective: Vital Signs Temp Pulse Resp BP Pulse Ox 36.9 C 79 16 138/91 H 92 07/19/17 07:30 07/19/17 07:30 07/19/17 07:30 07/19/17 07:30 07/19/17 07:30 Laboratory Results 07/16/17 04:30 07/16/17 04:30 07/18/17 07/19/17 07/20/17 05:59 05:59 05:59 Intake Total 2313 1220 Output Total 3150 1900 100 Balance -837 -680 -100 PT 13.0 SEC (12.0-15.0) 07/15/17 15:07 INR 0.96 (0.83-1.16) 07/15/17 15:07 - Physical Exam Constitutional: no apparent distress Eyes: PERRL, EOMI Ears, Nose, Mouth, Throat: moist mucous membranes, hearing normal, ears appear normal Cardiovascular: regular rate and rhythym, no murmur, rub, or gallop Respiratory: no respiratory distress, no rales or rhonchi Gastrointestinal: normoactive bowel sounds, soft, non-tender abdomen Skin: warm Neurologic: AAOx3 Psychiatric: interacting appropriately, not anxious, not encephalopathic Lymph, Heme, Immunologic: No petechiae ICD10 Worksheet Patient Problems: Problems Problem Status Onset Abdominal pain Acute Colitis Acute
[2017-07-20 08:24] VITALS: BP 154/89
[2017-07-20] MEDS: ENOXAPARIN 40 MG/0.4 ML SYR SC SCH (08:37)
--- NOTE | 2017-07-20 08:46 | SOAPPROG ---
SOAP Progress Note Assessment/Plan: Assessment: 56 yo s/p ovarian cancer with chemo rads with multiple abdominal surgeries Tolerated clears diarrhea will advance diet Abdomen soft and non tender bs present appears well Plan: 07/18/17 21:34 07/20/17 08:46 Objective: Vital Signs Temp Pulse Resp BP Pulse Ox 36.9 C 72 14 154/89 H 92 07/20/17 08:23 07/20/17 08:23 07/20/17 08:23 07/20/17 08:23 07/20/17 08:23 Laboratory Results 07/16/17 04:30 07/16/17 04:30 07/19/17 07/20/17 07/21/17 05:59 05:59 05:59 Intake Total 1220 480 Output Total 1900 100 Balance -680 380 PT 13.0 SEC (12.0-15.0) 07/15/17 15:07 INR 0.96 (0.83-1.16) 07/15/17 15:07 ICD10 Worksheet Patient Problems: Problems Problem Status Onset Abdominal pain Acute Colitis Acute
--- NOTE | 2017-07-20 10:28 | PDDCSUM ---
Discharge Summary Discharge Summary: 56 yo F with PMH of ovarian cancer and recurrent SBO admitted with persistent n/ v/abdominal pain similar to prior bouts of SBO. This was treated conservatively with resolution. She is tolerating a diet and is ready for D/C She will f/u with Dr. Modi, her PCP, in one week consultants: Dr. Snyder, surgery, pt cleared for d/c. no surgical interventions performed DDX: # partial SBO -resolved -KUB with gastrograffin with no signs of obstruction -NGT pulleded 5/2 -Olamide clears, diet advanced -pain is well controlled. # H/O ovarian cancer - in remission for 10 yrs. Multiple surgical interventions as above. #HTN: Losartan/HCTZ held, will f/u with PCP # Chronic LLE edema - related to lymph node dissection of LLE. Stable #Full code #DVT PPLX - Lovenox, while in the hospital Exam: NAD AAOX3 RRR CTA B S/NT/ND +BS Meds: please see med rec F/u: per above total time spent on d/c is 35 mins
== END 2017-07-20 12:32 | disposition home or self-care (01) | DRG 390 ==
LOC: OBSVTOIN 18:15 → F3E 20:09
PROVIDERS: ADMIT Hospitalist; ATTEND Hospitalist
DX: K56.690 Other partial intestinal obstruction (principal); Z85.43 Personal history of malignant neoplasm of ovary; I10 Essential (primary) hypertension; R60.0 Localized edema
CPT/HCPCS: 82947-QW; 96365; G0378; J0360; J0744; J1170; J1650; J2405; J2550; Q9967

== ENCOUNTER → 2017-08-24 | Outpatient (CLI) | payer OTHER | LOC: FIMAGING 11:07 | PROVIDERS: ATTEND Internal Medicine | DX: Z12.31 Encounter for screening mammogram for malignant neoplasm of breast (principal); Z13.820 Encounter for screening for osteoporosis; M85.89 Other specified disorders of bone density and structure, multiple sites; Z78.0 Asymptomatic menopausal state ==